=== PATIENT | male | born 1955 | race Caucasian/White ===

== ENCOUNTER 2019-05-29 13:49 | Emergency (ER) | payer BC, SELFPAY ==
[~2019-05-29] VITALS: Ht 180.3 cm; Wt 143.2 kg
[~2019-05-29 13:49] MED LIST: APIX5TAB3 PO; ASPI-920 PO; CARSR60C PO; FURO20TA4 PO; LISI10TA4 PO; ONDA4TAB6 PO; POTA20TA10 PO
[2019-05-29 14:36] LABS: BASOPHILS % (AUTO) 0.5 % (0-1); EOSINOPHILS # (AUTO) 0.2 X10'3 (0-0.9); EOSINOPHILS % (AUTO) 2.3 % (0-6); HEMATOCRIT 45.7 % (42.0-52.0); HEMOGLOBIN 15.7 g/dl (14.0-17.9); LYMPHOCYTES # (AUTO) 1.3 X10'3 (1.1-4.8); LYMPHOCYTES % (AUTO) 12.2 % (21-51); MEAN CORPUSCULAR HGB CONC 34.3 g/dL (33.0-36.5); MEAN CORPUSCULAR VOLUME 87.6 FL (78-98); MEAN PLATELET VOLUME 8.4 FL (7.4-10.4); MONOCYTES # (AUTO) 1.1 X10'3 (0-0.9); MONOCYTES % (AUTO) 10.9 % (2-12); NEUTROPHILS # (AUTO) 7.7 X10'3 (1.8-7.7); NEUTROPHILS % (AUTO) 74.1 % (42-75); PLATELET COUNT 239 X10'3 (140-440); RED BLOOD COUNT 5.22 X10'6 (4.70-6.10); RED CELL DISTRIBUTION WIDTH 13.1 % (11.5-14.5); WHITE BLOOD COUNT 10.4 X10'3 (4.5-11.0)
[2019-05-29] MEDS ORDERED: METF-436 PO (14:55)
[2019-05-29] MEDS ORDERED: CARV-50 PO (14:56)
[2019-05-29] MEDS ORDERED: LISI-600 PO (14:56)
[2019-05-29 15:03] LABS: ALANINE AMINOTRANSFERASE 21 U/L (12-78); ALBUMIN 3.8 G/DL (3.4-5.0); ALBUMIN/GLOBULIN RATIO 1.1 (1.1-1.5); ALKALINE PHOSPHATASE 68 IU/L (46-116); ANION GAP 8 (8-16); ASPARTATE AMINO TRANSFERASE 14 U/L (10-37); BILIRUBIN,TOTAL 0.9 MG/DL (0.1-1.0); BLOOD UREA NITROGEN 20 MG/DL (7-18); BUN/CREATININE RATIO 15.3 (5.4-32.0); CALCIUM 8.6 MG/DL (8.5-10.1); CHLORIDE 107 MMOL/L (99-107); CREATININE 1.31 MG/DL (0.60-1.10); GLUCOSE 103 MG/DL (70-104); POTASSIUM 4.2 MMOL/L (3.5-5.1); SODIUM 140 MMOL/L (135-145); TOTAL CARBON DIOXIDE 25.4 MMOL/L (24-32); TOTAL PROTEIN 7.4 G/DL (6.4-8.2); eGFR 55 ML/MIN
[2019-05-29] MEDS ORDERED: diltiazem 5mg/ml 5ml inj. IV ONE (15:50)
[2019-05-29] MEDS ORDERED: furosemide 10 MG/1 ML 10ml inj IV ONE (15:50)
[2019-05-29] MEDS ORDERED: carVEDilol 3.125mg tablet PO ONE (15:50)
[2019-05-29 16:38] VITALS: BP 151/91
== END 2019-05-29 16:40 | disposition home or self-care (01) ==
LOC: ER 13:50
DX: R05 Cough (principal); I48.20 Chronic atrial fibrillation, unspecified; I11.0 Hypertensive heart disease with heart failure; I50.9 Heart failure, unspecified; E11.9 Type 2 diabetes mellitus without complications; Z79.899 Other long term (current) drug therapy; Z79.82 Long term (current) use of aspirin
CPT/HCPCS: 36415; 80053; 83735; 83880; 84484; 85025; 93005; 96374; 96375; 99284; J1940; J3490

== ENCOUNTER 2020-12-02 06:37 | Emergency (ER) | payer BC ==
[~2020-12-02] VITALS: Ht 182.9 cm; Wt 154.6 kg
[~2020-12-02 06:37] MED LIST changes: -ASPI-920 PO; -CARSR60C PO; +CARV-50 PO; -LISI10TA4 PO; +LISI20TA28 PO; +METF-436 PO; -ONDA4TAB6 PO
[2020-12-02 06:38] VITALS: BP 183/90
[2020-12-02] MEDS ORDERED: DIAZ-351 PO (06:46)
[2020-12-02] MEDS ORDERED: METH-797 PO (06:46)
[2020-12-02] MEDS ORDERED: BUPIVAcaine 0.5% inj/PF 30 ml vial IJ ONE (07:35)
[2020-12-02] MEDS ORDERED: diazepam 5mg tablet PO ONE (08:30)
[2020-12-02] MEDS ORDERED: ketorolac tromethamine 15mg/ml inj. IM ONE (08:30)
== END 2020-12-02 09:04 | disposition home or self-care (01) ==
LOC: ER 06:37
DX: S39.012A Strain of muscle, fascia and tendon of lower back, initial encounter (principal); I11.9 Hypertensive heart disease without heart failure; E11.9 Type 2 diabetes mellitus without complications; Z79.899 Other long term (current) drug therapy; X58.XXXA Exposure to other specified factors, initial encounter; Y93.89 Activity, other specified; Y92.89 Other specified places as the place of occurrence of the external cause; Y99.8 Other external cause status
CPT/HCPCS: 20553; 96372; 99284; J1885